=== PATIENT | male | born 1980 | race Caucasian/White ===

== ENCOUNTER → 2021-05-02 09:10 | Outpatient (CLI) | payer OTHER, SELFPAY ==
[2021-05-03 16:35] LABS: SARS-CoV-2 RNA PCR Negative
== END ==
PROVIDERS: PCP Family Medicine; Visit Provider Family Medicine
DX: J06.9 Acute upper respiratory infection, unspecified (principal); Z20.822 Contact with and (suspected) exposure to COVID-19
CPT/HCPCS: C9803; U0003; U0005

== ENCOUNTER 2023-09-25 04:02 | Day surgery (SDC) | payer BC, SELFPAY ==
[2023-09-09 14:55] VITALS: BMI 28.7
--- NOTE | 2023-09-23 09:29 | SUR.PREOP ---
Patient called regarding upcoming procedure. Reviewed preop instructions, appointment times, and procedure prep.
--- NOTE | 2023-09-24 18:21 | PM.HPGS ---
History of Present Illness History of Present Illness Consent: Risks, benefits, and alternatives have been discussed and questions answered. Patient agrees to proceed with procedure. Chief complaint: dysphagia,GERD Narrative: Heraclio Stevens is a 42 year old male Referred because of difficulty with swallowing due to suspected reflux. 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 He takes it sporadically now. He has not have frequent heartburn. Review of Systems Review of Systems: All systems reviewed & are unremarkable except as noted in HPI and below PMFSH Past Medical History Medical History Abnormal serum iron level (10/01/22) iron slightly elevated at 184 on 10/01/2022. Achilles tendinitis of left lower extremity (~07/2022) Acute bronchitis Bilateral groin pain BMI 27.0-27.9,adult BMI 28.0-28.9,adult Chronic neck pain (~01/2023) treated by chiropractor 02/14/2023 COVID-19 (08/07/21) COVID-19 (12/16/22) 2nd episode starting 12/16 with positive 12/18/2022. Dysphagia Elevated liver enzymes (10/01/22) AST 65, ALT 56 on 10/01/2022. Encounter for prostate cancer screening PSA 0.59 on 10/01/2022. Encounter for wellness examination in adult Epididymitis GERD (gastroesophageal reflux disease) Left ankle sprain (~07/2022) Low back pain Mixed hyperlipidemia (10/01/22) total cholesterol 203, triglycerides 245, HDL 30, LDL 133 on 10/01/2022. 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 Overweight (BMI 25.0-29.9) URI (upper respiratory infection) COVID negative from 05/02/2021 Social History Social History Smoking status: Never smoker Alcohol intake: never Substance use: never Substance use type: does not use Lack of Transportation: No Lack of Food: Never True Current Housing: I Have Housing Concerned About Future Housing: No Difficulty Paying Gas/Electric Bills: No Difficulty Paying for Meds: No Currently Unemployed: No Education: Bachelor's Degree Difficulty w/ Childcare or Family Care: No Living arrangements: with family Spiritual care concerns: No Meds Home Medications and Allergies Home Medications Medication Instructions Recorded Confirmed Type omeprazole 20 mg capsule,delayed 20 mg PO DAILY #90 caps 09/25/22 09/25/23 Rx release Allergies Allergy/AdvReac Type Severity Reaction Status Date / Time No Known Allergies Allergy Verified 09/25/23 09:39 Exam Const: General: alert Orientation/consciousness: patient oriented x3 Resp: Auscultation: clear to auscultation bilaterally Cardio: Rhythm: regular rhythm GI: GI Palp: Yes Soft to palpation and No Tenderness to palpation present (GI) Neuro: General: patient oriented x3 Assessment and Plan Assessment and plan (1) Dysphagia: Code(s): R13.10 - Dysphagia, unspecified Status: Acute Assessment and Plan: EGD with possible biopsy or dilatation or cautery.
[2023-09-25 09:41] VITALS: BP 127/79; PULSE 58; RESP 20; TEMP 36.2; O2SAT 100; BMI 29.4
[2023-09-25] MEDS: LACTATED RINGERS 1,000 ML 150 ML IV CONT (09:43)
--- NOTE | 2023-09-25 10:21 | WPDANESEPPF ---
Anes - Initial Pre Proc Eval Procedure: Operation Date: 09/25/23 10:30 Proposed Procedures p Esophagogastroduodenoscopy - Ron Correa MD Date/Time: 09/25/23 10:21 Surgeon: Ron Correa MD Pre Op Diagnosis: dysphagia,GERD Patient Data Age: 42 Gender: M Height: 1.78 m Weight: 93.1 kg Last Vital Signs Temp 97.1 F L 09/25/23 09:41 Pulse 58 L 09/25/23 09:41 Resp 20 09/25/23 09:41 BP 127/79 09/25/23 09:41 Pulse Ox 100 09/25/23 09:41 O2 Del Method Room Air 09/25/23 09:41 Allergies Allergy/AdvReac Type Severity Reaction Status Date / Time No Known Allergies Allergy Verified 09/25/23 09:39 Home Medications Medication Instructions Recorded Confirmed Type omeprazole 20 mg capsule,delayed 20 mg PO DAILY #90 caps 09/25/22 09/25/23 Rx release Patient hx anesthesia problems: none Family hx anesthesia problems: none Results Review: All pre-operative results and documents have been reviewed as part of the pre-operative evaluation. [facility] Past Medical History Medical History Abnormal serum iron level (10/01/22) iron slightly elevated at 184 on 10/01/2022. Achilles tendinitis of left lower extremity (~07/2022) Acute bronchitis Bilateral groin pain BMI 27.0-27.9,adult BMI 28.0-28.9,adult Chronic neck pain (~01/2023) treated by chiropractor 02/14/2023 COVID-19 (08/07/21) COVID-19 (12/16/22) 2nd episode starting 12/16 with positive 12/18/2022. Dysphagia Elevated liver enzymes (10/01/22) AST 65, ALT 56 on 10/01/2022. Encounter for prostate cancer screening PSA 0.59 on 10/01/2022. Encounter for wellness examination in adult Epididymitis GERD (gastroesophageal reflux disease) Left ankle sprain (~07/2022) Low back pain Mixed hyperlipidemia (10/01/22) total cholesterol 203, triglycerides 245, HDL 30, LDL 133 on 10/01/2022. 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 Overweight (BMI 25.0-29.9) URI (upper respiratory infection) COVID negative from 05/02/2021 Social History Social History Smoking status: Never smoker Alcohol intake: never Substance use: never Substance use type: does not use Lack of Transportation: No Lack of Food: Never True Current Housing: I Have Housing Concerned About Future Housing: No Difficulty Paying Gas/Electric Bills: No Difficulty Paying for Meds: No Currently Unemployed: No Education: Bachelor's Degree Difficulty w/ Childcare or Family Care: No Living arrangements: with family Spiritual care concerns: No Anes - Eval Final PreProcedure Day of Procedure 09/25/23 10:21 Patient weight: normal Heart: regular rate and rhythm Lungs: clear to auscultation Airway: Mallampati scale class II Neurological: alert and oriented Last oral intake: >/= 8 hours ASA classification: II Emergent: no Anesthetic plan: proceed Anesthesia type and monitoring: general GIVS and standard monitoring Results Review: All pre-operative results and documents have been reviewed as part of the pre-operative evaluation. Informed Consent: The patient's anesthetic plan and its attendant risks and benefits were discussed with the patient/family/POA. Questions were solicited and answers provided to the satisfaction of the patient/family/POA.
[2023-09-25 10:50] VITALS: BP 114/70; PULSE 77; RESP 26; O2SAT 97
[2023-09-25 11:00] VITALS: BP 118/69; PULSE 66; RESP 17; O2SAT 98
[2023-09-25 11:10] VITALS: BP 117/72; PULSE 64; RESP 21; O2SAT 97
== END 2023-09-25 11:17 | disposition home or self-care (01) ==
PROVIDERS: PCP Family Medicine; Visit Provider Internal Medicine Gastroenterology
PROC: 0DJ08ZZ Inspection of Upper Intestinal Tract, Via Natural or Artificial Opening Endoscopic (ICD-10-PCS; CPT 43235; principal; 2023-09-25 10:30)
DX: K22.2 Esophageal obstruction (principal); K44.9 Diaphragmatic hernia without obstruction or gangrene; K20.0 Eosinophilic esophagitis; K29.50 Unspecified chronic gastritis without bleeding; K31.A0 Gastric intestinal metaplasia, unspecified
CPT/HCPCS: 43249; 88305; C1726; J2704; J7120